=== PATIENT | male | born 1985 | race African-American/Black ===

== ENCOUNTER 2016-12-07 23:54 | Emergency (ER) | payer SELFPAY ==
[2016-12-08 00:38] LABS: #Eosinphils 0.1 thou/uL (0.0-0.7); #Lymphocytes 2.3 thou/uL (1.20-3.40); #Monocytes 0.4 thou/uL (0.11-0.59); #Neutrophils 4.6 thou/uL (1.40-6.50); %Basophils 0.4 % (0.0-1.0); %Eosinophils 1.7 % (0.0-10.0); %Lymphocytes 30.9 % (21.0-51.0); %Monocytes 5.4 % (0.0-10.0); Hematocrit 43.7 % (42.0-52.0); Mean Platelet Volume 8.2 fL (7.4-10.4); Red Blood Cell (RBC) Count 4.63 mill/uL (4.70-6.10); White Blood Cell (WBC) Count 7.4 thou/uL (4.8-10.8)
[2016-12-08 01:17] LABS: Bilirubin Negative (Negative); Blood, Urine Negative (Negative); Glucose, Urine (Dipstick) Negative (Negative); Ketone, Urine Negative (Negative); Nitrite Negative (Negative); Protein, Urine (Dipstick) Negative (Neg-Trace)
[2016-12-08 01:18] LABS: Amphetamine Not Detected (NotDetected); Methadone Not Detected (NotDetected); Methamphetamine Not Detected (NotDetected)
[2016-12-08 01:19] LABS: ALT (SGPT) 15 U/L (8-55); AST (SGOT) 31 U/L (5-34); Alkaline Phosphatase 78 U/L (40-150); Anion Gap 15 mmol/L (10-20); BUN (Urea Nitrogen) 20 mg/dL (8.9-20.6); Bilirubin, Total 0.3 mg/dL (0.2-1.2); Calc. Creatinine Clearance 0 mL/min (70-130); Calcium 9.1 mg/dL (7.8-10.44); Carbon Dioxide 25 mmol/L (22-29); Chloride 105 mmol/L (98-107); Estimated GFR-MDRD 72
[2016-12-08 01:44] LABS: Acetaminophen Less than 6.0 mcg/mL (10.0-30.0); CK (CPK) 764 U/L (30-200); Salicylate Less than 8.0 mg/dL (15.0-30.0)
== END 2016-12-09 14:00 | disposition home or self-care (01) ==
LOC: ERS 23:54
DX: R44.0 Auditory hallucinations (principal); R45.851 Suicidal ideations; F41.9 Anxiety disorder, unspecified; F31.9 Bipolar disorder, unspecified; F17.210 Nicotine dependence, cigarettes, uncomplicated
CPT/HCPCS: 80053; 80306; 80307; 81003; 82550; 84443; 85025; 96360; 96361

== ENCOUNTER 2016-12-21 01:02 | Observation (INO) | payer SELFPAY ==
[2016-12-21 01:32] LABS: #Basophils 0.1 thou/uL (0.0-0.2); #Eosinphils 0.3 thou/uL (0.0-0.7); #Lymphocytes 2.4 thou/uL (1.20-3.40); #Monocytes 0.9 thou/uL (0.11-0.59); #Neutrophils 4.1 thou/uL (1.40-6.50); %Basophils 1.2 % (0.0-1.0); %Eosinophils 3.3 % (0.0-10.0); %Lymphocytes 31.5 % (21.0-51.0); %Monocytes 11.1 % (0.0-10.0); Hematocrit 42.6 % (42.0-52.0); Mean Platelet Volume 7.4 fL (7.4-10.4); Red Blood Cell (RBC) Count 4.39 mill/uL (4.70-6.10); White Blood Cell (WBC) Count 7.7 thou/uL (4.8-10.8)
[2016-12-21] MEDS ORDERED: Ketorolac Tromethamine 30 MG/ML VIAL ONE (01:48)
[2016-12-21] MEDS ORDERED: Lidocaine Viscous Sol 2% 15 ml UD Cup ONE (01:48)
[2016-12-21] MEDS ORDERED: Milk Of Magnesia 30 ML UDCUP ONE (01:48)
[2016-12-21 01:54] LABS: ALT (SGPT) 16 U/L (8-55); AST (SGOT) 31 U/L (5-34); Alkaline Phosphatase 57 U/L (40-150); Anion Gap 14 mmol/L (10-20); BUN (Urea Nitrogen) 26 mg/dL (8.9-20.6); Bilirubin, Total 0.6 mg/dL (0.2-1.2); CK (CPK) 1442 U/L (30-200); Calc. Creatinine Clearance 0 mL/min (70-130); Calcium 9.6 mg/dL (7.8-10.44); Carbon Dioxide 27 mmol/L (22-29); Chloride 102 mmol/L (98-107); Estimated GFR-MDRD 65; Globulin 2.9 g/dL (2.4-3.5); Protein, Total 7.2 g/dL (6.0-8.3)
[2016-12-21 01:57] LABS: Troponin I Less than 0.010 ng/mL (< 0.028)
[2016-12-21] MEDS ORDERED: Ondansetron ODT 4 MG TAB SL PRN (05:05)
[2016-12-21] MEDS ORDERED: Ondansetron HCl/PF 4 MG/2 ML Vial IVP PRN (05:05)
[2016-12-21] MEDS ORDERED: Acetaminophen 325 MG TAB PO PRN (05:05)
[2016-12-21 05:19] LABS: Bilirubin Negative (Negative); Blood, Urine Negative (Negative); Glucose, Urine (Dipstick) Negative (Negative); Ketone, Urine Trace mg/dL (Negative); Nitrite Negative (Negative); Protein, Urine (Dipstick) Trace mg/dL (Neg-Trace)
[2016-12-21 05:22] LABS: Bacteria/HPF None Seen HPF (None Seen); Hyaline Casts/LPF 7-10 HYALINE CAST LPF (0-3 Hyaline); RBC/HPF 0-3 HPF (0-3); Squamous Epithelial 0-3 HPF (0-3)
[2016-12-21 05:32] LABS: Amphetamine Not Detected (NotDetected); Methadone Not Detected (NotDetected); Methamphetamine Not Detected (NotDetected)
[2016-12-21] MEDS: Lactated Ringer's 1,000 ML IV SCH ×3 (05:37→13:55)
[2016-12-21] MEDS: Sodium Chloride 0.9% 1,000 ML IV SCH ×3 (08:29→20:27)
[2016-12-21] MEDS ORDERED: Ondansetron ODT 4 MG TAB PO PRN (09:11)
[2016-12-21 14:54] VITALS: BMI 31.1
[2016-12-21 14:57] LABS: Anion Gap 12 mmol/L (10-20); BUN (Urea Nitrogen) 18 mg/dL (8.9-20.6); CK (CPK) 1104 U/L (30-200); Calc. Creatinine Clearance 105 mL/min (70-130); Calcium 8.5 mg/dL (7.8-10.44); Carbon Dioxide 25 mmol/L (22-29); Chloride 110 mmol/L (98-107); Estimated GFR-MDRD 75
--- NOTE | 2016-12-21 16:23 | HP ---
PRIMARY CARE PHYSICIAN: None. CHIEF COMPLAINT: Chest pain. HISTORY OF PRESENT ILLNESS: Mr. Todd is a 31-year-old white male with a history of anxiety, bip olar, depression, schizophrenia, possible chronic kidney disease, who presented to the emergency dep artment for 2 weeks of intermittent chest pain. He describes the chest pain as being centered on th e left side of his chest, a kind of shooting to the bilateral legs. He has no shortness of breath a ssociated with it other than the fact that it hurts more when he takes a deep breath. No nausea and vomiting. No diaphoresis. He does have a history of psychiatric problems with lots of stressors r ecently. He feels depressed. He went to [facility], but was unable to get any medications. Actually, he has a followup appointment for later today. Denies any suicidal ideation or homicidal ideation. Pain is centered over the left anterior chest. It hurts with movement and deep palpation. Denies any trauma, but then recalls that he was doing some boxing, sparring a couple of days ago. D oes not recall any specific injury to that area. No fevers or chills, no nausea or vomiting, no diarrhea or constipation. PAST MEDICAL HISTORY: As above. 1. Anxiety. 2. Bipolar disorder. 3. Depression. 4. Schizophrenia. 5. Chronic kidney disease. PAST SURGICAL HISTORY: Left ear surgery after perforation remotely. HOME MEDICATIONS: None currently. He said whatever medicines they gave him in the ER were what he was supposed to be on. I do not see any psychiatric medications. ALLERGIES: NKDA. FAMILY HISTORY: Negative for history of clotting or bleeding disorder, no immune dysfunction. Othe rwise, the patient has really no clues. SOCIAL HISTORY: Negative for marijuana use. He uses social alcohol and smokes about a half pack pe r day on occasion for several years. REVIEW OF SYSTEMS: A 10-point review of systems was performed and was negative for all other system s except as stated as per HPI. PHYSICAL EXAMINATION: VITAL SIGNS: Temperature is 98.3, pulse 68, blood pressure 130/74, respiratory rate 16, O2 sat 100% on room air. GENERAL: He is awake, alert, and oriented x3, appears to be in no acute distress. HEENT: Normocephalic, atraumatic. Pupils equal and reactive bilaterally. Mucous membranes are pablo [address]. He has no visible lesions. No thrush. NECK: Supple, without lymphadenopathy, JVD, or thyromegaly. LUNGS: Clear to auscultation bilaterally. No wheezes, no rales, no rhonchi with good chest excursi on and good air movement. CARDIOVASCULAR: Normal S1 and S2. I do not appreciate an S3 or S4. No audible murmurs. ABDOMEN: Soft, is nontender, nondistended. No masses and no organomegaly. He has no rebound, rigi dity, or guarding. He has normoactive bowel sounds present in all 4 quadrants. EXTREMITIES: Show no cyanosis, no clubbing, no edema. MUSCULOSKELETAL: Exam is normal to inspection. He has no inflamed joints and no palpable joint eff usions. He has good range of motion. He is tender to palpation over the pectoralis major and the b iceps tendon of the left pectoral groove. The biceps muscle and rib cage and latissimus dorsi on th e left are nontender. NEUROLOGIC: Examination shows cranial nerves II-XII are grossly intact. He has no focal neurologic deficits with normal speech. LABORATORY DATA: CMP is normal except for creatinine of 1.51. Unsure what his baseline is. CBC is normal. Platelet count 152,000, hemoglobin 14.2, and white blood cell count 7.7. His CK-MB is 1.4 , troponin I was undetectable, CK was 1442 on presentation and down to 1208 after admission. Urine drug screen was positive for marijuana only. ASSESSMENT AND PLAN: 1. Musculoskeletal chest pain on the left side. The patient denied trauma, but then did admit that he had been sparring. There certainly could be an injury related to that. 2. Elevated creatinine. I suspect he may have some chronic kidney disease. Unsure of his baseline . We will continue hydration and watch his creatinine closely. 3. Rhabdomyolysis, mild, CK 1442 down to 1258. Certainly, could be related to muscular injury or m uscular strain from his sparring. 4. History of psychiatric disorder. The patient missed his [facility] appointment, as he is here in the hospital. I have asked casework manager to look and see if they can get that rescheduled. We will continue IV hydration and recheck labs in the morning. We will get a CK this afternoon and it is possible we may discharge if it is normalized or less than 1000; if not, keep him overnight an d recheck in the morning.
[2016-12-21] MEDS: Famotidine 20 MG TAB PO SCH (20:27)
[2016-12-22] MEDS: Sodium Chloride 0.9% 1,000 ML IV SCH ×2 (03:26→10:54)
[2016-12-22] MEDS: Famotidine 20 MG TAB PO SCH (08:21)
[2016-12-22] MEDS ORDERED: FLU VACC QS2017-18 36 mo. & older 0.5 ML SYRINGE IM ONE (09:00)
[2016-12-22 09:15] LABS: #Basophils 0.1 thou/uL (0.0-0.2); #Eosinphils 0.2 thou/uL (0.0-0.7); #Lymphocytes 2.2 thou/uL (1.20-3.40); #Monocytes 0.7 thou/uL (0.11-0.59); #Neutrophils 4.6 thou/uL (1.40-6.50); %Eosinophils 2.9 % (0.0-10.0); %Lymphocytes 27.8 % (21.0-51.0); %Monocytes 9.3 % (0.0-10.0); Hematocrit 44.5 % (42.0-52.0); Red Blood Cell (RBC) Count 4.49 mill/uL (4.70-6.10); White Blood Cell (WBC) Count 7.8 thou/uL (4.8-10.8)
[2016-12-22 09:37] LABS: Anion Gap 13 mmol/L (10-20); BUN (Urea Nitrogen) 11 mg/dL (8.9-20.6); CK (CPK) 1054 U/L (30-200); Calc. Creatinine Clearance 110 mL/min (70-130); Calcium 8.8 mg/dL (7.8-10.44); Carbon Dioxide 25 mmol/L (22-29); Chloride 108 mmol/L (98-107); Estimated GFR-MDRD 80
[2016-12-22 11:33] VITALS: BP 127/64; TEMP 98.6
--- NOTE | 2016-12-22 15:25 | DIS ---
DATE OF ADMISSION: 12/21/2016 DATE OF DISCHARGE: 12/22/2016 DISCHARGE DIAGNOSES: 1. Musculoskeletal chest pain. 2. Mild rhabdomyolysis. 3. Depression/bipolar disorder, untreated. 4. Anxiety. CONSULTATIONS: None. PROCEDURES: None. HISTORY AND PHYSICAL: Mr. Todd is a pleasant 31-year-old -[place] male whom I admitted early on 12/21/2016, for chest pain. He had elevated CK, but negative cardiac enzymes and atypical symptoms consistent with musculoskeletal chest wall pain and placed in observation due to increased CK. HOSPITAL COURSE: The patient was seen and examined in his room after being admitted from the ER. C K was elevated, but it started to improve. He was started on IV fluids. Pain control was establish ed, and his [facility] appointment that he had made for that day, was rescheduled for the following Tuesday . Overnight on 12/21 to 12/22/2016, his pain resolved. His CK dropped down to 1000. He continu ed to tolerate p.o. well and his biomarkers were unremarkable. The patient was discharged home in s table condition with outpatient up with [facility]. Further history obtained from the patient revealed that he does boxing/sparring on a regular basis a nd had done sparring 1-2 days prior to admission and certainly may have resulted in chest injury. PHYSICAL EXAMINATION: The patient was seen and examined on the day of discharge. Discharge plan an d disposition was discussed with the patient [id number] at the bedside. DISCHARGE MEDICATIONS: None. The patient has not been on any psychiatric medicines, has not picked any here from the pharmacist jane ocampo 2014, has an appointment with [facility] on 12/24/2016. DISCHARGE ACTIVITY: As tolerated. DISCHARGE DIET: Regular. Patient was encouraged to drink plenty of fluids. DISCHARGE CONDITION: Stable. DISPOSITION: He will be discharged home via private vehicle. INSTRUCTIONS: Return to Emergency Department for worsening pain, decreased urine output, or new sym ptoms.
== END 2016-12-22 13:55 | disposition home or self-care (01) ==
LOC: ERS 01:02 → T4-A 04:55 → INTOOBSV 04:55
PROVIDERS: ADMIT Internal Medicine; ATTEND Internal Medicine
DX: R07.89 Other chest pain (principal); M62.82 Rhabdomyolysis; F31.9 Bipolar disorder, unspecified; F41.9 Anxiety disorder, unspecified; R74.8 Abnormal levels of other serum enzymes; F20.9 Schizophrenia, unspecified; N18.9 Chronic kidney disease, unspecified; F17.210 Nicotine dependence, cigarettes, uncomplicated; Z98.890 Other specified postprocedural states
CPT/HCPCS: 36415; 80048; 80053; 80306; 81003; 81015; 82550; 82553; 84484; 85025; 93005; 96361; 96374; 99406; A4216; G0378; J1885

== ENCOUNTER 2017-01-22 17:13 | Emergency (ER) | payer SELFPAY ==
--- NOTE | 2017-01-22 19:23 | RAD ---
FOUR VIEWS CALVARIUM 01/22/17 COMPARISON: None. HISTORY: Evaluate for scalp foreign body, fell backwards out of a car six months ago. FINDINGS: No displaced fracture noted. No radiopaque foreign body is appeared. IMPRESSION: No acute findings. No opaque foreign body seen. POS: [facility]
== END 2017-01-22 19:33 ==
LOC: ERS 17:13
DX: Z02.89 Encounter for other administrative examinations (principal); F41.9 Anxiety disorder, unspecified; F20.9 Schizophrenia, unspecified; F31.9 Bipolar disorder, unspecified; F17.210 Nicotine dependence, cigarettes, uncomplicated
CPT/HCPCS: 70260; 99406

== ENCOUNTER 2017-02-24 22:07 | Emergency (ER) | payer SELFPAY ==
[2017-02-24 23:22] LABS: #Lymphocytes 2.2 thou/uL (1.20-3.40); #Monocytes 0.8 thou/uL (0.11-0.59); #Neutrophils 5.4 thou/uL (1.40-6.50); %Basophils 0.4 % (0.0-1.0); %Eosinophils 0.5 % (0.0-10.0); %Lymphocytes 26.4 % (21.0-51.0); %Monocytes 8.8 % (0.0-10.0); %Neutrophils 63.9 % (42.0-75.0); Hemoglobin 15.8 g/dL (14.0-18.0); Mean Corpuscular HGB CONC 33.2 g/dL (32.0-36.0); Mean Corpuscular Hemoglobin 32.1 pg (27.0-31.0); Mean Corpuscular Volume 96.6 fl (80.0-94.0); Mean Platelet Volume 7.2 fL (7.4-10.4); Platelet Count 184 thou/uL (130-400); RBC Distribution Width 11.4 % (11.5-14.5); Red Blood Cell (RBC) Count 4.92 mill/uL (4.70-6.10); White Blood Cell (WBC) Count 8.5 thou/uL (4.8-10.8)
[2017-02-24 23:42] LABS: ALT (SGPT) 15 U/L (8-55); AST (SGOT) 30 U/L (5-34); Albumin 4.8 g/dL (3.5-5.0); Alkaline Phosphatase 56 U/L (40-150); Anion Gap 15 mmol/L (10-20); BUN (Urea Nitrogen) 21 mg/dL (8.9-20.6); Bilirubin, Total 0.5 mg/dL (0.2-1.2); CK (CPK) 1330 U/L (30-200); Calc. Creatinine Clearance 0 mL/min (70-130); Carbon Dioxide 25 mmol/L (22-29); Chloride 104 mmol/L (98-107); Estimated GFR-MDRD 55; Globulin 3.4 g/dL (2.4-3.5); Glucose 85 mg/dL (70-105); Potassium 4.4 mmol/L (3.5-5.1); Protein, Total 8.2 g/dL (6.0-8.3); Sodium 140 mmol/L (136-145)
[2017-02-24 23:47] LABS: CKMB 1.7 ng/mL (0-6.6)
== END 2017-02-25 00:03 | disposition left against medical advice (07) ==
LOC: ERS 22:07
DX: Z53.21 Procedure and treatment not carried out due to patient leaving prior to being seen by health care provider (principal)
CPT/HCPCS: 36415; 80053; 82550; 82553; 84484; 85025; 93005

== ENCOUNTER 2017-02-26 17:05 | Emergency (ER) | payer SELFPAY ==
[2017-02-26 17:45] LABS: #Basophils 0.1 thou/uL (0.0-0.2); #Eosinphils 0.1 thou/uL (0.0-0.7); #Monocytes 0.7 thou/uL (0.11-0.59); #Neutrophils 3.2 thou/uL (1.40-6.50); %Basophils 1.8 % (0.0-1.0); %Eosinophils 1.1 % (0.0-10.0); %Lymphocytes 32.6 % (21.0-51.0); %Monocytes 12.2 % (0.0-10.0); %Neutrophils 52.3 % (42.0-75.0); Hemoglobin 15.4 g/dL (14.0-18.0); Mean Corpuscular HGB CONC 33.6 g/dL (32.0-36.0); Mean Corpuscular Hemoglobin 32.6 pg (27.0-31.0); Mean Corpuscular Volume 96.9 fl (80.0-94.0); Mean Platelet Volume 7.2 fL (7.4-10.4); Platelet Count 175 thou/uL (130-400); RBC Distribution Width 11.4 % (11.5-14.5); Red Blood Cell (RBC) Count 4.72 mill/uL (4.70-6.10); White Blood Cell (WBC) Count 6.1 thou/uL (4.8-10.8)
[2017-02-26 18:06] LABS: Acetaminophen Less than 6.0 mcg/mL (10.0-30.0); Alcohol Less than 10 mg/dL (Less than 10); Salicylate Less than 8.0 mg/dL (15.0-30.0)
[2017-02-26 18:07] LABS: ALT (SGPT) 32 U/L (8-55); AST (SGOT) 39 U/L (5-34); Albumin 4.7 g/dL (3.5-5.0); Alkaline Phosphatase 58 U/L (40-150); Anion Gap 13 mmol/L (10-20); BUN (Urea Nitrogen) 22 mg/dL (8.9-20.6); Bilirubin, Total 0.8 mg/dL (0.2-1.2); Calc. Creatinine Clearance 0 mL/min (70-130); Calcium 9.8 mg/dL (7.8-10.44); Carbon Dioxide 25 mmol/L (22-29); Chloride 103 mmol/L (98-107); Estimated GFR-MDRD 67; Globulin 3.2 g/dL (2.4-3.5); Glucose 112 mg/dL (70-105); Potassium 4.2 mmol/L (3.5-5.1); Protein, Total 7.9 g/dL (6.0-8.3); Sodium 137 mmol/L (136-145)
[2017-02-26 20:40] LABS: Bilirubin Small (Negative); Blood, Urine Moderate (Negative); Clarity CLEAR (Clear); Glucose, Urine (Dipstick) Negative (Negative); Leukocyte Negative (Negative); Nitrite Negative (Negative); Protein, Urine (Dipstick) 30 mg/dL (Neg-Trace); Specific Gravity, Urine 1.039 (1.002-1.036)
[2017-02-26 20:42] LABS: Bacteria/HPF None Seen HPF (None Seen); Hyaline Casts/LPF 4-6 HYALINE CAST LPF (0-3 Hyaline); Squamous Epithelial 0-3 HPF (0-3)
[2017-02-26 20:48] LABS: Amphetamine Not Detected (NotDetected); Barbiturates Screen Not Detected (NotDetected); Benzodiazepine Screen Not Detected (NotDetected); Cocaine Metabolite Screen Not Detected (NotDetected); Medtox Control Line Valid? VALID (VALID); Medtox Reader # READER 1; Methadone Not Detected (NotDetected); Methamphetamine Detected (NotDetected); Opiate Screen Not Detected (NotDetected); Oxycodone Screen Not Detected (NotDetected); Phencyclidine (PCP) Not Detected (NotDetected); THC/Cannabinoid Screen Detected (NotDetected); Tricyclic Screen Detected (NotDetected)
== END 2017-02-26 23:04 | disposition home or self-care (01) ==
LOC: ERS 17:05
DX: F31.9 Bipolar disorder, unspecified (principal); F19.10 Other psychoactive substance abuse, uncomplicated; F20.0 Paranoid schizophrenia; F17.210 Nicotine dependence, cigarettes, uncomplicated; Z79.899 Other long term (current) drug therapy
CPT/HCPCS: 36415; 80053; 80306; 80307; 81003; 81015; 85025; 99284